=== PATIENT | female | born 1970 ===

== ENCOUNTER 2019-05-09 06:25 | Day surgery (SDC) | payer OTHER ==
[~2019-05-09 06:25] MED LIST: IRON1TAB4 PO; KAPSPARGO SPRI200 MG PO; PROTONIX40 M1 PO; VITAMIN D31 ML PO
[2019-05-09] MEDS ORDERED: MORGIDOX100 MG PO (11:25)
[2019-05-09] MEDS ORDERED: NAPR500T14 PO (11:26)
== END 2019-05-09 15:50 | disposition home or self-care (01) ==
LOC: CIR.AMB 06:25 → ADM 07:15 → CIR.AMB 09:00
DX: N84.0 Polyp of corpus uteri (principal); D25.0 Submucous leiomyoma of uterus; N80.0 Endometriosis of uterus

== ENCOUNTER 2021-04-27 09:45 | Inpatient (IN) | payer OTHER ==
[~2021-04-27] VITALS: Ht 160 cm; Wt 103.9 kg
[~2021-04-27 09:45] MED LIST changes: +MORGIDOX100 MG PO; +NAPR500T14 PO
[2021-04-27] MEDS ORDERED: DIOVAN160 M1 PO (11:24)
[2021-04-27] MEDS ORDERED: METFORMIN HCL500 M3 PO (11:24)
[2021-04-27] MEDS ORDERED: TYLENOL ARTHRI650 MG PO (11:25)
[2021-05-02] MEDS ORDERED: Tylenol #3 PO (11:47)
[2021-05-02] MEDS ORDERED: NAPR500T14 PO (11:47)
== END 2021-05-02 12:40 | disposition home or self-care (01) | DRG 735 ==
LOC: OB/GYN 04-29 05:55 → O/R 04-29 05:55 → OB/GYN 04-29 09:45
PROVIDERS: Obstetrics & Gynecology Gynecologic Oncology; ADMIT Obstetrics & Gynecology; ATTEND Obstetrics & Gynecology
PROC: 0UT74ZZ Resection of Bilateral Fallopian Tubes, Percutaneous Endoscopic Approach (ICD-10-PCS; 2021-04-29)
PROC: 0UT24ZZ Resection of Bilateral Ovaries, Percutaneous Endoscopic Approach (ICD-10-PCS; 2021-04-29)
PROC: 0UTC0ZZ Resection of Cervix, Open Approach (ICD-10-PCS; 2021-04-29)
PROC: 0TN70ZZ Release Left Ureter, Open Approach (ICD-10-PCS; 2021-04-29)
PROC: 0TN60ZZ Release Right Ureter, Open Approach (ICD-10-PCS; 2021-04-29)
PROC: 07TC0ZZ Resection of Pelvis Lymphatic, Open Approach (ICD-10-PCS; principal; 2021-04-29 10:30)
PROC: 0UT94ZZ Resection of Uterus, Percutaneous Endoscopic Approach (ICD-10-PCS; 2021-04-29 10:30)
DX: D25.0 Submucous leiomyoma of uterus (principal); N80.0 Endometriosis of uterus; Z20.822 Contact with and (suspected) exposure to COVID-19; N83.12 Corpus luteum cyst of left ovary; N83.291 Other ovarian cyst, right side